=== PATIENT | male | born 1955 | race African-American/Black ===

== ENCOUNTER 2017-01-16 09:57 | Emergency (ER) | payer OTHER ==
[2017-01-16 10:01] VITALS: BP 164/94
[2017-01-16 10:30] LABS: APPEARANCE,URINE CLEAR; BILIRUBIN,URINE NEGATIVE (NEGATIVE); GLUCOSE, URINE NEGATIVE (NEGATIVE); KETONES,URINE NEGATIVE (NEGATIVE); LEUKOCYTE ESTERASE,URINE MODERATE (NEGATIVE); NITRITE,URINE NEGATIVE (NEGATIVE); PROTEIN,URINE 100 mg/dL (NEGATIVE); URINE SPECIFIC GRAVITY 1.016
--- NOTE | 2017-01-16 10:45 | RADIOLOGY REPORT (SQ) ---
EXAM DESCRIPTION: CHEST PA/LAT COMPLETED DATE/TIME: 01/16/2017 10:33 am REASON FOR STUDY: cough, smoker, rhonchi COMPARISON: None. EXAM PARAMETERS: NUMBER OF VIEWS: two views TECHNIQUE: Digital Frontal and Lateral radiographic views of the chest acquired. RADIATION DOSE: NA LIMITATIONS: none FINDINGS: LUNGS AND PLEURA: No opacities, masses or pneumothorax. No pleural effusion. MEDIASTINUM AND HILAR STRUCTURES: No masses or contour abnormalities. HEART AND VASCULAR STRUCTURES: Heart normal size. No evidence for failure. BONES: No acute findings. HARDWARE: None in the chest. OTHER: No other significant finding. IMPRESSION: NO SIGNIFICANT RADIOGRAPHIC FINDING IN THE CHEST. TECHNICAL DOCUMENTATION: JOB ID: [id number] [employer]- All Rights Reserved
[2017-01-16] MEDS ORDERED: CEPHALEXIN 500 MG CAPSULE PO ONE (11:00)
--- NOTE | 2017-01-16 11:03 | ER Document Report ---
ED GI/ - General Chief Complaint: Urinary Frequency Stated Complaint: URINARY ISSUES Time Seen by Provider: 01/16/17 10:09 Mode of Arrival: Ambulatory Information source: Patient Notes: Patient is a 62-year-old male who presents to the ER today for burning with urination, increased urinary frequency and "dribbling" that started this morning only. Patient denies any abdominal pain or back pain, fevers or chills. Patient denies any problems with his prostate that he knows of. Patient states that he does not drink enough water. He states that this morning he did see a little bit of blood in his urine. He denies any history of kidney stones. TRAVEL OUTSIDE OF THE [place] IN LAST 30 DAYS: No - Related Data Allergies/Adverse Reactions: Tetanus Vaccines and Toxoid [Tetanus] Allergy (Severe, Verified 01/16/17 10:01) Swelling Past Medical History - General Information source: Patient - Social History Smoking Status: Current Every Day Smoker Chew tobacco use (# tins/day): No Frequency of alcohol use: None Drug Abuse: None Family History: Reviewed & Not Pertinent - Past Medical History Cardiac Medical History: Reports: Hx Hypertension Denies: Hx Coronary Artery Disease, Hx Heart Attack Pulmonary Medical History: Denies: Hx Asthma, Hx Bronchitis, Hx COPD, Hx Pneumonia Neurological Medical History: Denies: Hx Cerebrovascular Accident, Hx Seizures Renal/ Medical History: Denies: Hx Peritoneal Dialysis Musculoskeltal Medical History: Reports Hx Arthritis - LEFT Hand Past Surgical History: Denies: Hx Pacemaker - Immunizations Hx Diphtheria, Pertussis, Tetanus Vaccination: No - Allergic Review of Systems - Review of Systems Constitutional: No symptoms reported EENT: No symptoms reported Cardiovascular: No symptoms reported Respiratory: No symptoms reported Gastrointestinal: No symptoms reported Genitourinary: See HPI Male Genitourinary: No symptoms reported Musculoskeletal: No symptoms reported Skin: No symptoms reported Hematologic/Lymphatic: No symptoms reported Neurological/Psychological: No symptoms reported Physical Exam - Vital signs Vitals: Temp Pulse Resp BP Pulse Ox 97.7 F 71 20 164/94 H 96 01/16/17 10:01 01/16/17 10:01 01/16/17 10:01 01/16/17 10:01 01/16/17 10:01 - Notes Notes: PHYSICAL EXAMINATION: GENERAL: Well-appearing and in no acute distress. HEAD: Atraumatic, normocephalic. EYES: Pupils equal round and reactive to light, extraocular movements intact, sclera anicteric, conjunctiva are normal. ENT: ear canals without erythema or foreign body, TMs pearly huffman with good bony landmarks, nares patent, oropharynx clear without exudates. Moist mucous membranes. NECK: Normal range of motion, supple without lymphadenopathy LUNGS: Rhonchi that clears with coughing, otherwise no wheezes rales HEART: Regular rate and rhythm without murmurs ABDOMEN: Soft, no tenderness. No guarding, no rebound BACK: no vertebral tenderness, normal ROM GI/: no CVA tenderness EXTREMITIES: Normal range of motion, no pitting edema. No cyanosis. NEUROLOGICAL: Cranial nerves grossly intact. Normal sensory/motor exams. PSYCH: Normal mood, normal affect. SKIN: Warm, Dry, normal turgor, no rashes or lesions noted Course - Re-evaluation Re-evalutation: 01/16/17 11:01 urinary infection evident on urinalysis with blood, leukocytes, 92 white blood cells. Urine culture is pending. Will treat with Keflex. Chest x-ray performed due to rhonchi that clears with coughing and negative today. Patient is a smoker. I have advised that he stop smoking. - Vital Signs Vital signs: Temp Pulse Resp BP Pulse Ox 97.7 F 71 20 164/94 H 96 01/16/17 10:01 01/16/17 10:01 01/16/17 10:01 01/16/17 10:01 01/16/17 10:01 - Laboratory Laboratory results interpreted by me: 01/16/17 10:06 Urine Protein 100 H Urine Blood MODERATE H Urine Urobilinogen 2.0 H Ur Leukocyte Esterase MODERATE H Urine Ascorbic Acid 40 H Discharge - Discharge Clinical Impression: Smokers' cough Urinary tract infection Qualifiers: Urinary tract infection type: acute cystitis Hematuria presence: with hematuria Qualified Code(s): N30.01 - Acute cystitis with hematuria Condition: Stable Disposition: HOME, SELF-CARE Instructions: Cephalexin ([facility]), Urinary Tract Infection ([facility]) Additional Instructions: Return immediately for any new or worsening symptoms. Follow up with primary care provider, call tomorrow to make followup appointment. Prescriptions: Cephalexin Monohydrate [Keflex 500 mg Capsule] 500 mg PO BID 10 Days capsule Phenazopyridine HCl [Pyridium 100 Mg Tablet] 100 mg PO TID PRN #15 tablet PRN Reason:
== END 2017-01-16 11:10 | disposition home or self-care (01) ==
LOC: ER 09:57
DX: J41.0 Simple chronic bronchitis (principal); N30.01 Acute cystitis with hematuria; R35.0 Frequency of micturition; R30.9 Painful micturition, unspecified; F17.200 Nicotine dependence, unspecified, uncomplicated
CPT/HCPCS: 71020; 81001; 99283

== ENCOUNTER 2017-01-27 19:45 | Emergency (ER) | payer OTHER ==
[2017-01-27 20:32] VITALS: BP 144/92
[2017-01-27 21:15] LABS: APPEARANCE,URINE SLIGHTLY-CLOUDY; BILIRUBIN,URINE NEGATIVE (NEGATIVE); GLUCOSE, URINE NEGATIVE (NEGATIVE); KETONES,URINE NEGATIVE (NEGATIVE); LEUKOCYTE ESTERASE,URINE SMALL (NEGATIVE); NITRITE,URINE NEGATIVE (NEGATIVE); PROTEIN,URINE 30 mg/dL (NEGATIVE); URINE SPECIFIC GRAVITY 1.023; UROBILINOGEN,URINE NEGATIVE mg/dL (<2.0)
--- NOTE | 2017-01-27 22:35 | ER Document Report ---
ED Medical Screen (RME) - General Chief Complaint: Urinary Incontinence Stated Complaint: URINARY ISSUES Time Seen by Provider: 01/27/17 22:25 Notes: Patient is a 62-year-old male who comes emergency department for chief complaint of hematuria and dysuria. He states he was seen about a week ago in the emergency department, diagnosed with urinary tract infection, placed on Keflex for 10 doses, states he completed these doses but about 4 days ago he started urinating pure blood. He is a smoker. He is treated for hypertension, denies other medical history. Denies history of kidney stones. Denies history of cancer. TRAVEL OUTSIDE OF THE [place] IN LAST 30 DAYS: No - Related Data Allergies/Adverse Reactions: Tetanus Vaccines and Toxoid [Tetanus] Allergy (Severe, Verified 01/27/17 20:30) Swelling Past Medical History - General Information source: Patient - Social History Frequency of alcohol use: None Drug Abuse: None Lives with: Alone Family history: Reviewed & Not Pertinent - Past Medical History Cardiac Medical History: Reports: Hx Hypertension Denies: Hx Coronary Artery Disease, Hx Heart Attack Pulmonary Medical History: Denies: Hx Asthma, Hx Bronchitis, Hx COPD, Hx Pneumonia Neurological Medical History: Denies: Hx Cerebrovascular Accident, Hx Seizures Renal/ Medical History: Denies: Hx Peritoneal Dialysis Musculoskeltal Medical History: Reports Hx Arthritis - LEFT Hand Past Surgical History: Denies: Hx Pacemaker - Immunizations Hx Diphtheria, Pertussis, Tetanus Vaccination: No - Allergic Review of Systems - Review of Systems Constitutional: No symptoms reported EENT: No symptoms reported Cardiovascular: No symptoms reported Respiratory: No symptoms reported Gastrointestinal: No symptoms reported Genitourinary: See HPI Male Genitourinary: No symptoms reported Musculoskeletal: No symptoms reported Skin: No symptoms reported Hematologic/Lymphatic: No symptoms reported Neurological/Psychological: No symptoms reported Physical Exam - Vital signs Vitals: Temp Pulse Resp BP Pulse Ox 98.2 F 76 16 144/92 H 95 01/27/17 20:31 01/27/17 20:31 01/27/17 20:31 01/27/17 20:31 01/27/17 20:31 Interpretation: Normal - General General appearance: Appears well, Alert In distress: None - HEENT Head: Normocephalic, Atraumatic Eyes: Normal Pupils: PERRL - Respiratory Respiratory status: No respiratory distress Chest status: Nontender Breath sounds: Normal Chest palpation: Normal - Cardiovascular Rhythm: Regular Heart sounds: Normal auscultation Murmur: No - Abdominal Inspection: Normal Distension: No distension Bowel sounds: Normal Tenderness: Nontender. No: Tender, Guarding Organomegaly: No organomegaly - Back Back: Normal, Nontender. No: Tender, CVA tenderness - Extremities General upper extremity: Normal inspection, Nontender, Normal color, Normal ROM , Normal temperature General lower extremity: Normal inspection, Nontender, Normal color, Normal ROM , Normal temperature, Normal weight bearing. No: Gabriella's sign - Neurological Neuro grossly intact: Yes Cognition: Normal Orientation: AAOx4 Iker Coma Scale Eye Opening: Spontaneous Iker Coma Scale Verbal: Oriented Iker Coma Scale Motor: Obeys Commands Iker Coma Scale Total: 15 Speech: Normal Motor strength normal: LUE, RUE, LLE, RLE Sensory: Normal - Psychological Associated symptoms: Normal affect, Normal mood - Skin Skin Temperature: Warm Skin Moisture: Dry Skin Color: Normal Course - Re-evaluation Re-evalutation: CBC, chemistry unremarkable. Urinalysis shows hematuria. Because of patient's ongoing symptoms CAT scan was performed. CAT scan showing large 1.2 cm stone at the left UVJ or bladder. This is most likely the cause of patient's symptoms. Patient is surprisingly well-appearing , he denies any pain, nausea, vomiting, he has no CVA tenderness, no fever, no tachycardia, no hypotension. Patient states he is ready to leave. Patient does agree to call urology in the morning, he states that he will follow-up closely, he agrees he will return if he develops a fever, vomiting, pain, or any other developing symptoms. He was provided copy of his report. - Vital Signs Vital signs: Temp Pulse Resp BP Pulse Ox 98.2 F 76 16 144/92 H 95 01/27/17 20:31 01/27/17 20:31 01/27/17 20:31 01/27/17 20:31 01/27/17 20:31 - Laboratory Result Diagrams: 01/27/17 23:35 01/27/17 23:35 Laboratory results interpreted by me: 01/27/17 01/27/17 20:36 23:35 Sodium 147.6 H Chloride 109 H Urine Protein 30 H Urine Blood LARGE H Ur Leukocyte Esterase SMALL H Doctor's Discharge - Discharge Clinical Impression: Essential hypertension Hematuria Qualifiers: Hematuria type: gross Qualified Code(s): R31.0 - Gross hematuria Condition: Stable Disposition: HOME, SELF-CARE Additional Instructions: You have a large stone and that is either in the bladder or in the tube just before the bladder. This is why you are having blood in your urine. Please call the urologist today to perform close follow-up, take the Flomax as prescribed, take the pain medication given if needed, return to the emergency department immediately if he develop any worsening symptoms including fever, pain in her abdomen or back, vomiting, or any other concerning symptoms. [facility] Urologist in [place], [place] Address: [address] [place], [place] [id number] [facility] clinic in [place], [place] Address: [address] [place], [place] [id number] Prescriptions: Morphine Sulfate [Morphine Ir 15 Mg Tablet] 15 mg PO Q4HP PRN #12 tablet PRN Reason: Amlodipine Besylate 5 mg PO DAILY #30 tab Tamsulosin HCl [Flomax 0.4 mg Cap.sr] 0.4 mg PO DAILY #7 cap.sr.24h Forms: Return to Work Referrals: TALIA COOPER PA [Primary Care Provider] - Follow up as needed
--- NOTE | 2017-01-27 23:04 | RADIOLOGY REPORT (SQ) ---
EXAM DESCRIPTION: CT LTD RENAL STONE PROTOCOL ON COMPLETED DATE/TIME: 01/27/2017 10:43 pm REASON FOR STUDY: dysuria, hematuria COMPARISON: None. TECHNIQUE: CT scan of the abdomen and pelvis performed without intravenous or oral contrast. Images reviewed with lung, soft tissue, and bone windows. Reconstructed coronal and sagittal MPR images revi ewed. All images stored on PACS. All CT scanners at this facility use dose modulation, iterative reconstruction, and/or weight based d osing when appropriate to reduce radiation dose to as low as reasonably achievable (ALARA). [facility]: Dose Right [facility]: CareDose [facility]: Dose Right [facility]: Teradose 4D [facility]: Smart [facility] RADIATION DOSE: Up-to-date CT equipment and radiation dose reduction techniques were employed. CTDIv ol: 7.6 mGy. DLP: 408 mGy-cm.mGy. LIMITATIONS: None. FINDINGS: LOWER CHEST: No significant findings. No nodules or infiltrates. Small coronary arterial calcification. NON-CONTRASTED LIVER, SPLEEN, ADRENALS: Evaluation limited by lack of IV contrast. No identified sign ificant masses. PANCREAS: No masses. No peripancreatic inflammatory changes. GALLBLADDER: No identified stones by CT criteria. No inflammatory changes to suggest cholecystitis. RIGHT KIDNEY AND URETER: 1.2 x 0.7 by 0.7 cm right ureterovesicular junctional/ bladder stone with mo derate right hydronephrosis -hydroureter. Multiple additional right renal stones measuring up to 0.3 cm each. LEFT KIDNEY AND URETER: No suspicious masses. Assessment limited by lack of IV contrast. Several st ones measure up to 1.5 cm each. No hydronephrosis or hydroureter. Likely benign 2.8 cm exophytic c yst not definitively characterized. AORTA AND RETROPERITONEUM: No aneurysm. No retroperitoneal masses or adenopathy. BOWEL AND PERITONEAL CAVITY: No obvious masses or inflammatory changes. No free fluid. APPENDIX: Normal. PELVIS, BLADDER, AND ABDOMINAL WALL:No abnormal masses. No free fluid. Bladder normal. BONES: Moderate disc desiccation between the L2 and S1 levels. OTHER: 3, likely benign epidermal cysts measure up to 3.3 cm each in along the midline of the anterio r chest wall at the level of the xiphoid process. IMPRESSION: 1.2 cm right UVJ/ bladder stone with moderate -high grade obstruction. Bilateral nephro lithiasis. COMMENT: Quality ID # [id number]: Final reports with documentation of one or more dose reduction techniques (e.g., Automated exposure control, adjustment of the mA and/or kV according to patient size, use of iterative reconstruction technique) TECHNICAL DOCUMENTATION: JOB ID: [id number] [employer]- All Rights Reserved
[2017-01-27 23:59] LABS: ABSOLUTE BASOPHILS # (AUTO) 0.1 10^3/uL (0.0-0.2); ABSOLUTE EOSINOPHILS # (AUTO) 0.2 10^3/uL (0.0-0.6); ABSOLUTE LYMPHOCYTES (AUTO) 2.7 10^3/uL (0.5-4.7); ABSOLUTE MONOCYTES (AUTO) 0.5 10^3/uL (0.1-1.4); ABSOLUTE NEUT (AUTO) 3.5 10^3/uL (1.7-8.2); BASOPHILS % (AUTO) 1.2 % (0-2); EOSINOPHILS % (AUTO) 2.5 % (0-6); HEMATOCRIT 44.5 % (37.9-51.0); HEMOGLOBIN 14.7 g/dL (13.5-17.0); HGB HCT DIFFERENCE -0.4; LYMPHOCYTES % (AUTO) 38.6 % (13-45); MEAN CORPUSCULAR HEMOGLOBIN 29.7 pg (27.0-33.4); MEAN CORPUSCULAR HGB CONC 33.2 g/dL (32.0-36.0); MEAN CORPUSCULAR VOLUME 89 fl (80-97); MONOCYTES % (AUTO) 7.7 % (3-13); RED BLOOD COUNT 4.97 10^6/uL (4.35-5.55); RED CELL DISTRIBUTION WIDTH 13.1 % (11.5-14.0); WHITE BLOOD COUNT 6.9 10^3/uL (4.0-10.5)
[2017-01-28 00:11] LABS: ANION GAP 11 (5-19); BLOOD UREA NITROGEN 18 mg/dL (7-20); CALCIUM 10.1 mg/dL (8.4-10.2); CARBON DIOXIDE 28 mmol/L (22-30); CHLORIDE 109 mmol/L (98-107); CREATININE RESULT 0.95 mg/dL (0.52-1.25); GLUCOSE 77 mg/dL (75-110); POTASSIUM 4.2 mmol/L (3.6-5.0); SODIUM 147.6 mmol/L (137-145)
== END 2017-01-28 00:35 | disposition home or self-care (01) ==
LOC: ER 19:45
DX: N20.0 Calculus of kidney (principal); R31.0 Gross hematuria; R30.0 Dysuria; F17.200 Nicotine dependence, unspecified, uncomplicated; I10 Essential (primary) hypertension; Z87.440 Personal history of urinary (tract) infections; Z88.7 Allergy status to serum and vaccine
CPT/HCPCS: 36415; 76380; 80048; 81001; 85025; 87086; 99284

== ENCOUNTER 2018-01-12 15:18 | Emergency (ER) | payer BC, OTHER ==
[2018-01-12 15:37] VITALS: BP 131/99
--- NOTE | 2018-01-12 15:47 | ER Document Report ---
ED Medical Screen (RME) - General Chief Complaint: Testicular Pain Stated Complaint: GROIN PAIN Time Seen by Provider: 01/12/18 15:46 TRAVEL OUTSIDE OF THE [place] IN LAST 30 DAYS: No - HPI Notes: 01/12/18 15:47 Groin pain possible hernia - Related Data Allergies/Adverse Reactions: Tetanus Vaccines and Toxoid [Tetanus] Allergy (Severe, Verified 01/12/18 15:20) Swelling Past Medical History - Social History Family history: Reviewed & Not Pertinent - Past Medical History Cardiac Medical History: Reports: Hx Hypertension Denies: Hx Coronary Artery Disease, Hx Heart Attack Pulmonary Medical History: Denies: Hx Asthma, Hx Bronchitis, Hx COPD, Hx Pneumonia Neurological Medical History: Denies: Hx Cerebrovascular Accident, Hx Seizures Renal/ Medical History: Denies: Hx Peritoneal Dialysis Musculoskeltal Medical History: Reports Hx Arthritis - LEFT Hand Past Surgical History: Denies: Hx Pacemaker - Immunizations Hx Diphtheria, Pertussis, Tetanus Vaccination: No - Allergic Review of Systems - Review of Systems Genitourinary: Pain - Groin pain Physical Exam - Vital signs Vitals: Temp Pulse Resp BP Pulse Ox 98.3 F 68 14 131/99 H 97 01/12/18 15:36 01/12/18 15:36 01/12/18 15:36 01/12/18 15:36 01/12/18 15:36 - Abdominal Inspection: Normal Distension: No distension Bowel sounds: Normal Tenderness: Nontender Organomegaly: No organomegaly Course - Vital Signs Vital signs: Temp Pulse Resp BP Pulse Ox 98.3 F 68 14 131/99 H 97 01/12/18 15:36 01/12/18 15:36 01/12/18 15:36 01/12/18 15:36 01/12/18 15:36 Doctor's Discharge - Discharge Referrals: TALIA COOPER PA [Primary Care Provider] - Follow up as needed
--- NOTE | 2018-01-12 16:38 | ER Document Report ---
ED General - General Chief Complaint: Testicular Pain Stated Complaint: GROIN PAIN Time Seen by Provider: 01/12/18 15:46 Mode of Arrival: Ambulatory Information source: Patient Notes: 63-year-old man presents to the emergency room with 2 months worth of right groin pain. He states it is worse when he strains, lifts heavy objects, coughs. He denies any burning on urination, or testicular pain. He denies any fever. He denies any abdominal pain. TRAVEL OUTSIDE OF THE [place] IN LAST 30 DAYS: No - HPI Onset: Last week Onset/Duration: Gradual Quality of pain: Dull Severity: Mild Pain Level: Denies Associated symptoms: denies: Chest pain, Fever, Shortness of breath Exacerbated by: Denies Relieved by: Denies Similar symptoms previously: No Recently seen / treated by doctor: No - Related Data Allergies/Adverse Reactions: Tetanus Vaccines and Toxoid [Tetanus] Allergy (Severe, Verified 01/12/18 15:20) Swelling Past Medical History - General Information source: Patient - Social History Smoking Status: Current Every Day Smoker Cigarette use (# per day): Yes - 1 pack per day Chew tobacco use (# tins/day): No Frequency of alcohol use: None Drug Abuse: None Lives with: Family Family History: Reviewed & Not Pertinent Patient has suicidal ideation: No Patient has homicidal ideation: No - Past Medical History Cardiac Medical History: Reports: Hx Hypertension Denies: Hx Coronary Artery Disease, Hx Heart Attack Pulmonary Medical History: Denies: Hx Asthma, Hx Bronchitis, Hx COPD, Hx Pneumonia Neurological Medical History: Denies: Hx Cerebrovascular Accident, Hx Seizures Renal/ Medical History: Denies: Hx Peritoneal Dialysis Musculoskeletal Medical History: Reports Hx Arthritis - LEFT Hand Past Surgical History: Reports: Hx Herniorrhaphy. Denies: Hx Pacemaker - Immunizations Hx Diphtheria, Pertussis, Tetanus Vaccination: No - Allergic Review of Systems - Review of Systems Constitutional: denies: Chills, Fever EENT: No symptoms reported Cardiovascular: No symptoms reported Respiratory: No symptoms reported Gastrointestinal: See HPI Genitourinary: No symptoms reported Male Genitourinary: No symptoms reported Musculoskeletal: No symptoms reported Skin: No symptoms reported Hematologic/Lymphatic: No symptoms reported Neurological/Psychological: No symptoms reported Physical Exam - Vital signs Vitals: Temp Pulse Resp BP Pulse Ox 98.3 F 68 14 131/99 H 97 01/12/18 15:36 01/12/18 15:36 01/12/18 15:36 01/12/18 15:36 01/12/18 15:36 Notes: Physical exam: GENERAL: 33-year-old man, alert and oriented 3, no acute distress HEAD: Atraumatic, normocephalic. EYES: Pupils equal round and reactive to light, extraocular movements intact, sclera anicteric, conjunctiva are normal. ENT: Nares patent, oropharynx clear without exudates. Moist mucous membranes. NECK: Normal range of motion, supple without obvious mass LUNGS: Breath sounds clear to auscultation bilaterally and equal. No wheezes rales or rhonchi. HEART: Regular rate and rhythm without murmurs, rubs or gallops. ABDOMEN: Soft, normoactive bowel sounds. No tenderness to palpation. No guarding, no rebound. No masses appreciated. Right groin: Patient does have a reducible inguinal hernia that is palpable. Testes: Nontender, no penile lesions. EXTREMITIES: Normal range of motion, no pitting or edema. No clubbing or cyanosis. NEUROLOGICAL: Cranial nerves II through XII grossly intact. Normal speech, moving all extremities. PSYCH: Normal mood, normal affect. SKIN: Warm, Dry, normal turgor, no rashes or lesions noted. Course - Vital Signs Vital signs: Temp Pulse Resp BP Pulse Ox 98.3 F 68 14 131/99 H 97 01/12/18 15:36 01/12/18 15:36 01/12/18 15:36 01/12/18 15:36 01/12/18 15:36 Discharge - Discharge Clinical Impression: Reducible right inguinal hernia Condition: Stable Disposition: HOME, SELF-CARE Additional Instructions: As we discussed, you do have a hernia in the right groin. I want you to call the surgical clinic and let them know you are in the emergency room and diagnosed with a hernia and the ER doctor wanted you seen in the surgical clinic. Return to the emergency room for abdominal pain, vomiting, not tolerating fluids or any concerns at the hernia is gotten worse. Forms: Return to Work Referrals: RAJIV TELLEZ MD [ACTIVE STAFF] - Follow up in 1 week (This is the number of the surgical clinic: Tell the office manager receptionist that you were in the ER and you have a hernia in the ER doctor wanted you seen)
== END 2018-01-12 16:53 | disposition home or self-care (01) ==
LOC: ER 15:18
DX: K40.90 Unilateral inguinal hernia, without obstruction or gangrene, not specified as recurrent (principal); N50.811 Right testicular pain; F17.210 Nicotine dependence, cigarettes, uncomplicated; I10 Essential (primary) hypertension
CPT/HCPCS: 99283